=== PATIENT | female | born 1985 | race Two or more races ===

== ENCOUNTER 2020-05-03 20:09 | Outpatient (CLI) | payer SELFPAY | END 2020-05-03 21:20 | disposition home or self-care (01) | LOC: LDOP 20:09 | PROVIDERS: ATTEND Obstetrics & Gynecology | DX: O42.90 Premature rupture of membranes, unspecified as to length of time between rupture and onset of labor, unspecified weeks of gestation (principal); Z3A.00 Weeks of gestation of pregnancy not specified | CPT/HCPCS: 81001; 87086; 89060; 99201; G0463; Q0114 ==

== ENCOUNTER 2020-07-12 06:52 | Inpatient (IN) | payer OTHER ==
[~2020-07-12] VITALS: Ht 165.1 cm; Wt 92.7 kg
[2020-07-12] MEDS ORDERED: FENTANYL PF 100 MCG/2ML IVPush PRN (07:30)
[2020-07-12] MEDS ORDERED: TERBUTALINE 1 MG/ML, 1ML IVPush PRN (07:30)
[2020-07-12] MEDS ORDERED: FENTANYL PF 100 MCG/2ML IV PRN (07:30)
[2020-07-12] MEDS ORDERED: TERBUTALINE 1 MG/ML, 1ML SQ PRN (07:30)
[2020-07-12] MEDS ORDERED: LACTATED RINGERS 1,000 ML IV SCH (07:30)
[2020-07-12] MEDS ORDERED: OXYTOCIN 30U/ 0.9% NaCL 500ML 500 ML IV ONE (07:30)
[2020-07-12] MEDS ORDERED: FENTANYL PF 100 MCG/2ML ONE (07:35)
[2020-07-12 07:51] LABS: BASOPHILS % (AUTO) 1 % (0-1); EOSINOPHILS % (AUTO) 0 % (1-7); LYMPHOCYTES % (AUTO) 12 % (22-44); MEAN CORPUSCULAR HEMOGLOBIN 31.2 pg (27.0-34.8); MEAN PLATELET VOLUME 8.7 fL (7.4-10.4); MONOCYTES % (AUTO) 7 % (2-9); NEUTROPHILS % (AUTO) 80 % (42-75); PLATELET COUNT 242 x10^3/uL (130-400); RED CELL DISTRIBUTION WIDTH 14.1 % (9.6-15.2)
[2020-07-12 07:58] LABS: MD NO
[2020-07-12] MEDS ORDERED: BUPIVACAINE 0.25% ONE (09:18)
[2020-07-12] MEDS ORDERED: FENTANYL/BUPIV./NS/PF 250 ML EPIDCONT ONE (09:19)
[2020-07-12] MEDS ORDERED: ONDANSETRON 2MG/ML, 2ML ONE (11:04)
[2020-07-12] MEDS ORDERED: NEWBORN KIT ONE (11:11)
[2020-07-12] MEDS ORDERED: LIDOCAINE 1%, 20ML ONE (11:12)
[2020-07-12] MEDS ORDERED: OXYTOCIN 30U/ 0.9% NaCL 500ML 500 ML ONE ×2 (11:12→14:38)
[2020-07-12] MEDS ORDERED: MISOPROSTOL 200 MCG TABLET ONE (11:12)
[2020-07-12] MEDS ORDERED: ONDANSETRON 2MG/ML, 2ML IVPush ONE (11:30)
[2020-07-12] MEDS ORDERED: OXYTOCIN 30U/ 0.9% NaCL 500ML 500 ML IV PRN (12:00)
[2020-07-12] MEDS ORDERED: IBUPROFEN 800 MG TABLET PO PRN (14:00)
[2020-07-12] MEDS ORDERED: SIMETHICONE 80 MG CHEW TAB PO PRN (14:00)
[2020-07-12] MEDS ORDERED: METHYLERGONOVINE 0.2 MG/ML IM PRN (14:00)
[2020-07-12] MEDS ORDERED: ONDANSETRON 2MG/ML, 2ML IV PRN (14:00)
[2020-07-12] MEDS ORDERED: CALCIUM CARBONATE 500 MG TAB.CHEW PO PRN (14:00)
[2020-07-12] MEDS ORDERED: OXYcodone/APAP 5/325MG TABLET PO PRN (14:00)
[2020-07-12] MEDS ORDERED: OXYTOCIN 10 UNITS/ML, 1ML IM PRN (14:00)
[2020-07-12] MEDS ORDERED: ACETAMINOPHEN 325 MG TABLET PO PRN ×2 (14:00)
[2020-07-12] MEDS ORDERED: IBUPROFEN 600 MG TABLET ONE (14:38)
[2020-07-12] MEDS: IBUPROFEN 600 MG TABLET PO PRN ×2 (14:45→20:57)
[2020-07-12] MEDS: OXYTOCIN 30U/ 0.9% NaCL 500ML 500 ML IV SCH (14:45)
[2020-07-12 19:35] VITALS: BP 108/69
[2020-07-12] MEDS: DOCUSATE 100 MG CAPSULE PO PRN (20:57)
[2020-07-12 21:51] LABS: BASOPHILS % (AUTO) 1 % (0-1); EOSINOPHILS % (AUTO) 0 % (1-7); LYMPHOCYTES % (AUTO) 16 % (22-44); MEAN CORPUSCULAR HEMOGLOBIN 30.9 pg (27.0-34.8); MEAN CORPUSCULAR HGB CONC 33.7 g/dL (32.4-35.8); MEAN PLATELET VOLUME 8.7 fL (7.4-10.4); MONOCYTES % (AUTO) 7 % (2-9); NEUTROPHILS % (AUTO) 76 % (42-75); PLATELET COUNT 225 x10^3/uL (130-400); RED BLOOD COUNT 3.65 x10^6/uL (3.82-5.3); RED CELL DISTRIBUTION WIDTH 14.2 % (9.6-15.2)
[2020-07-12 21:54] LABS: MD NO
[2020-07-13 00:39] VITALS: BP 100/62
[2020-07-13] MEDS: IBUPROFEN 600 MG TABLET PO PRN ×3 (03:00→14:20)
[2020-07-13 04:35] VITALS: BP 115/70
[2020-07-13] MEDS: DOCUSATE 100 MG CAPSULE PO PRN (07:20)
[2020-07-13] MEDS: OXYcodone IR 5MG TABLET PO PRN ×2 (07:21→13:13)
[2020-07-13 08:00] VITALS: BP 117/75
[2020-07-13] MEDS ORDERED: PRENATAL VIT/IRON/FA 1 EACH TABLET PO SCH (09:00)
[2020-07-13] MEDS: OXYTOCIN 30U/ 0.9% NaCL 500ML 500 ML IV SCH ×2 (10:00)
[2020-07-13] MEDS ORDERED: OXYC1TAB14 PO (12:10)
[2020-07-13] MEDS ORDERED: IBUP-1222 PO ×2 (12:10→12:11)
[2020-07-13 12:16] VITALS: BP 116/76
== END 2020-07-13 14:58 | disposition home or self-care (01) | DRG 807 ==
LOC: LDOP 06:52 → LDIP 07:55 → 2NW 16:27
PROVIDERS: ADMIT Obstetrics & Gynecology; ATTEND Obstetrics & Gynecology
PROC: 10E0XZZ Delivery of Products of Conception, External Approach (ICD-10-PCS; principal; 2020-07-12)
PROC: 0KQM0ZZ Repair Perineum Muscle, Open Approach (ICD-10-PCS; 2020-07-12)
PROC: 3E0R3BZ Introduction of Anesthetic Agent into Spinal Canal, Percutaneous Approach (ICD-10-PCS; 2020-07-12)
PROC: 00HU33Z Insertion of Infusion Device into Spinal Canal, Percutaneous Approach (ICD-10-PCS; 2020-07-12)
PROC: 10907ZC Drainage of Amniotic Fluid, Therapeutic from Products of Conception, Via Natural or Artificial Opening (ICD-10-PCS; 2020-07-12)
PROC: 10H07YZ Insertion of Other Device into Products of Conception, Via Natural or Artificial Opening (ICD-10-PCS; 2020-07-12)
PROC: 0W8NXZZ Division of Female Perineum, External Approach (ICD-10-PCS; 2020-07-12)
DX: O70.1 Second degree perineal laceration during delivery (principal); Z37.0 Single live birth; Z3A.39 39 weeks gestation of pregnancy; Z20.822 Contact with and (suspected) exposure to COVID-19
CPT/HCPCS: 36415; 85025; 86592; 86850; 86900; 87635; G0378; J3010; J2590; J7120